=== PATIENT | female | born 1995 | race Caucasian/White ===

== ENCOUNTER 2017-06-18 17:42 | Emergency (ER) | payer OTHER ==
[2017-06-18] MEDS ORDERED: KETOROLAC TROMETHAMINE 60 MG/2 ML VIAL IM ONE (18:59)
--- NOTE | 2017-06-18 19:00 | PDOC ---
Rapid Medical Evaluation Time Seen by Provider: 06/18/17 18:55 Medical Evaluation: 06/18/17 18:55 The patient presents with a chief complaint of: L sided headache since this morning. Took Motrin at 12:00. Feels a little dizzy. Has history of headaches/ migraines. I have performed a brief in-person evaluation of this patient; Pertinent physical exam findings: Neuro intact I have ordered the following: Toradol The patient will proceed to the ED for further evaluation.
[2017-06-18 19:13] VITALS: BMI 21.9
--- NOTE | 2017-06-18 20:38 | PDOC ---
History of Present Illness - General Chief Complaint: Headache Stated Complaint: HEADACHE Time Seen by Provider: 06/18/17 18:55 History Source: Patient Exam Limitations: No Limitations - History of Present Illness Initial Comments: CHIEF COMPLAINT: 21 y/o afebrile female with PMH migraines c/o left sided headache today. HISTORY OF PRESENT ILLNESS: The patient states her headache feels similar to migraines she's had in the past but she hasn't had one in a long time. She states she is sensitive to light as well. She denies f/c, n/v/d, CP, SOB, abd pain, changes to vision/hearing. Vital signs on arrival are within normal limits. REVIEW OF SYSTEMS: GENERAL/CONSTITUTIONAL: No fever/chills. No weakness. No weight change. HEAD, EYES, EARS, NOSE AND THROAT: +photophobia. No ear pain or discharge. No sore throat. CARDIOVASCULAR: No chest pain or shortness of breath. RESPIRATORY: No cough, wheezing, or hemoptysis. GASTROINTESTINAL: No abd pain, nausea, vomiting, diarrhea. GENITOURINARY: No dysuria, frequency, or change in urination. MUSCULOSKELETAL: No joint or muscle swelling or pain. No neck or back pain. SKIN: No rash or easy bruising. NEUROLOGIC: +headache. No vertigo, loss of consciousness, or loss of sensation. PHYSICAL EXAM: GENERAL: The patient is awake, alert, and fully oriented, in no acute distress. SHe is well appearing and ambulatory, but holding her hand over her head. HEAD: Normal with no signs of trauma. No hematomas. No TTP. ENT: Pupils equal, round and reactive to light, extraocular movements intact, sclera anicteric, conjunctiva clear. Photophobia. No pain with EOMs. LUNGS: Clear to auscultation bilaterally. Normal excursion. No respiratory distress or use of accessory muscles. CV: RRR, S1/S2, no MRG. Cap refill < 2 sec. ABDOMEN: Soft, non-distended, non-tender even to deep palpation, no hepatomegaly or splenomegaly, no masses. EXTREMITIES: Normal range of motion, no edema. NEUROLOGICAL: Normal speech, normal gait. CN II-XII grossly intact. SKIN: Warm, dry, normal turgor, no rashes or lesions noted. Past History - Past Medical History Allergies/Adverse Reactions: Allergies Allergy/AdvReac Type Severity Reaction Status Date / Time No Known Allergies Allergy Verified 06/18/17 18:56 Home Medications: Ambulatory Orders NK [No Known Home Medication] 06/18/17 CVA: No COPD: No DVT: No Other medical history: MIGRANES - Immunization History Immunization Up to Date: Yes - Suicide/Smoking/Psychosocial Hx Smoking History: Never smoked Information on smoking cessation initiated: No Hx Alcohol Use: No Drug/Substance Use Hx: No Substance Use Type: None *Physical Exam - Vital Signs Last Vital Signs Temp Pulse Resp BP Pulse Ox 98.1 F 91 H 17 124/51 99 06/18/17 18:56 06/18/17 18:56 06/18/17 18:56 06/18/17 18:56 06/18/17 18:56 ED Treatment Course - LABORATORY CBC & Chemistry Diagram: 06/18/17 22:00 06/18/17 22:00 Medical Decision Making - Medical Decision Making A/P: 21 y/o female with what sounds like migraine headache. Plan is as follows : 1. hcg Patient states she cannot give urine. Gave PO fluids 1 hour later still no urine. Will do serum , labs, IV fluids and IV reglan. Will transfer to main ER. EVANGELINA Uriostegui and charge nurse Dontrell away. The patient verbalizes understanding of all instructions, has no further questions and is awaiting discharge. *DC/Admit/Observation/Transfer Diagnosis at time of Disposition: Migraine Qualifiers: Migraine type: unspecified Status migrainosus presence: without status migrainosus Intractability: not intractable Qualified Code(s): G43.909 - Migraine, unspecified, not intractable, without status migrainosus - Referrals - Patient Instructions Printed Discharge Instructions: DI for Migraine - Post Discharge Activity
[2017-06-18] MEDS ORDERED: SODIUM CHLORIDE 1,000 ML IV STA (21:54)
[2017-06-18] MEDS ORDERED: METOCLOPRAMIDE HCL INJECTION 10 MG/2 ML VIAL IVPUSH ONE (22:08)
--- NOTE | 2017-06-18 22:28 | PDOC ---
*Physical Exam - Vital Signs Last Vital Signs Temp Pulse Resp BP Pulse Ox 98.1 F 91 H 17 124/51 99 06/18/17 18:56 06/18/17 18:56 06/18/17 18:56 06/18/17 18:56 06/18/17 18:56 - Physical Exam General Appearance: Yes: Appropriately Dressed, Other ED Treatment Course - LABORATORY CBC & Chemistry Diagram: 06/18/17 22:00 06/18/17 22:00 Medical Decision Making - Medical Decision Making 06/19/17 01:21 IVF completed. patient now feels better. will d/c home. dizziness and numbness improved, 06/19/17 01:36 *DC/Admit/Observation/Transfer Diagnosis at time of Disposition: Migraine Qualifiers: Migraine type: unspecified Status migrainosus presence: without status migrainosus Intractability: not intractable Qualified Code(s): G43.909 - Migraine, unspecified, not intractable, without status migrainosus - Discharge Dispostion Disposition: HOME - Prescriptions Prescriptions: Acetaminophen/Caffeine/Butalb [Fioricet -] 1 tab PO Q6H PRN #10 tablet MDD 4 PRN Reason: Headache - Referrals Referrals: Rome Cotto DO [Staff Physician] - - Patient Instructions Printed Discharge Instructions: DI for Migraine Additional Instructions: drink plenty of fluids take fiorecet every 6 hours as needed for headache. follow up with your doctor. return to the ED if symptoms worsen. - Post Discharge Activity Forms/Work/School Notes: Back to School
[2017-06-18 22:33] LABS: BASO % 0.5 % (0-2.0); EOS % 1.7 % (0-4.5); HEMATOCRIT 38.6 % (32.4-45.2); LYMPH % 36.5 % (8-40); MCH 29.4 pg (25.7-33.7); MCHC 33.6 g/dl (32.0-36.0); MEAN CELL VOLUME 87.3 fl (80-96); MONO % 7.8 % (3.8-10.2); NEUT % 53.5 % (42.8-82.8); PLATELET COUNT 177 K/MM3 (134-434); RBC 4.42 M/mm3 (3.60-5.2); RDW 12.8 % (11.6-15.6)
[2017-06-18 23:05] LABS: ALBUMIN 4.1 g/dl (3.4-5.0); ALK PHOS 72 U/L (45-117); ANION GAP 7 (8-16); BILIRUBIN,TOTAL 0.9 mg/dL (0.2-1.0); BLOOD UREA NITROGEN 11 mg/dL (7-18); CHLORIDE 104 mmol/L (98-107); CO2 28 mmol/L (21-32); CREATININE 0.6 mg/dL (0.55-1.02); GLUCOSE,RANDOM 84 mg/dL (74-106); POTASSIUM 4.4 mmol/L (3.5-5.1); SGOT/AST 11 U/L (15-37); SGPT/ALT 18 U/L (12-78); SODIUM 139 mmol/L (136-145)
[2017-06-18] MEDS ORDERED: KETOROLAC TROMETHAMINE 30 MG/1 ML VIAL IVPUSH ONE (23:13)
[2017-06-19] MEDS ORDERED: METOCLOPRAMIDE HCL INJECTION 10 MG/2 ML VIAL ONE (00:38)
[2017-06-19] MEDS ORDERED: KETOROLAC TROMETHAMINE 30 MG/1 ML VIAL ONE (00:39)
[2017-06-19] MEDS ORDERED: SODIUM CHLORIDE 1,000 ML IV STA (00:41)
[2017-06-19] MEDS ORDERED: SODIUM CHLORIDE 0.9% 1000 ML INFUS.BAG IV ONE (00:43)
[2017-06-19 02:48] VITALS: BP 124/52; PULSE 89; TEMP 98
== END 2017-06-19 02:55 | disposition home or self-care (01) ==
LOC: JER 17:42 → JERFT 17:42 → JER 06-19 02:55
PROC: 3E0337Z Introduction of Electrolytic and Water Balance Substance into Peripheral Vein, Percutaneous Approach (ICD-10-PCS; principal; 2017-06-18)
PROC: 3E0333Z Introduction of Anti-inflammatory into Peripheral Vein, Percutaneous Approach (ICD-10-PCS; 2017-06-18)
PROC: 3E033GC Introduction of Other Therapeutic Substance into Peripheral Vein, Percutaneous Approach (ICD-10-PCS; 2017-06-18)
DX: G43.909 Migraine, unspecified, not intractable, without status migrainosus (principal)
CPT/HCPCS: 36415; 80053; 84703; 85025; 99281-25

== ENCOUNTER 2018-07-01 21:56 | Emergency (ER) | payer OTHER ==
[2018-07-01 22:34] VITALS: BP 126/88; PULSE 80; TEMP 98.7; BMI 22.6
[2018-07-02] MEDS ORDERED: ACETAMINOPHEN 325 MG TABLET (FP) PO ONE (00:07)
[2018-07-02] MEDS ORDERED: SODIUM CHLORIDE 1,000 ML IV STA (00:07)
[2018-07-02] MEDS ORDERED: METOCLOPRAMIDE HCL INJECTION 10 MG/2 ML VIAL IVPB ONE (00:07)
[2018-07-02] MEDS ORDERED: METOCLOPRAMIDE HCL INJECTION 10 MG/2 ML VIAL ONE (00:44)
[2018-07-02] MEDS ORDERED: ACETAMINOPHEN 325 MG TABLET (FP) ONE (00:44)
--- NOTE | 2018-07-02 01:38 | PDOC ---
History of Present Illness - General Chief Complaint: Migraine Headache Stated Complaint: HEADACE VOMITING Time Seen by Provider: 07/01/18 23:04 History Source: Patient Exam Limitations: No Limitations Past History - Past Medical History Allergies/Adverse Reactions: Allergies Allergy/AdvReac Type Severity Reaction Status Date / Time No Known Allergies Allergy Verified 06/18/17 18:56 Home Medications: Ambulatory Orders Acetaminophen/Caffeine/Butalb [Fioricet -] 1 tab PO Q6H PRN #10 tablet MDD 4 CVA: No COPD: No DVT: No - Immunization History Immunization Up to Date: Yes - Suicide/Smoking/Psychosocial Hx Smoking History: Never smoked Hx Alcohol Use: No Drug/Substance Use Hx: No Substance Use Type: None *Physical Exam - Vital Signs Last Vital Signs Temp Pulse Resp BP Pulse Ox 98.7 F 80 20 126/88 96 07/01/18 22:28 07/01/18 22:28 07/01/18 22:28 07/01/18 22:28 07/01/18 22:28 - Physical Exam General Appearance: No: Apparent Distress HEENT: positive: ADAM Respiratory/Chest: positive: Lungs Clear, Normal Breath Sounds. negative: Respiratory Distress Cardiovascular: positive: Regular Rhythm, Regular Rate, S1, S2. 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 intact, Fully Oriented, Alert, Normal Mood/ Affect, Normal Response, Motor Strength 5/5 Moderate Sedation - Procedure Monitoring Vital Signs: Procedure Monitoring Vital Signs Temperature 98.7 F 07/01/18 22:28 Pulse Rate 80 07/01/18 22:28 Respiratory Rate 20 07/01/18 22:28 Blood Pressure 126/88 07/01/18 22:28 O2 Sat by Pulse Oximetry (%) 96 07/01/18 22:28 ED Treatment Course - Medications Given in the ED: ED Medications Discontinued Medications Generic Name Dose Route Start Last Admin Trade Name Freq PRN Reason Stop Dose Admin Acetaminophen 975 mg 07/02/18 00:07 07/02/18 00:49 Tylenol - PO 07/02/18 00:08 975 mg ONCE ONE Administration Sodium Chloride 1,000 mls @ 1,000 mls/hr 07/02/18 00:07 07/02/18 00:49 Normal Saline - IV 07/02/18 01:06 1,000 mls/hr ASDIR STA Administration Metoclopramide HCl 10 mg 07/02/18 00:07 07/02/18 00:49 Reglan Injection - IVPB 07/02/18 00:08 10 mg ONCE ONE Administration Medical Decision Making - Medical Decision Making 22 y/o F with hx of migraines presents with PABLO from this morning that feels like her typical migraine. Usually, she takes Tylenol or Motrin for her HAs. Took Tylenol in AM and Motrin around 7 PM but not noting any improvement. PABLO worse with light and noise. Also had 2 episodes of NBNB emesis. Mentions she has follow-up for her headaches and had CT scan of head done last month which was normal. Denies numbness/tingling/weakness of extremities, visual/gait changes. Migraine PABLO - given Tylenol, IVF, Reglan and on reassessment, feeling better stable for dc 07/02/18 01:53 *DC/Admit/Observation/Transfer Diagnosis at time of Disposition: Migraine Qualifiers: Migraine type: unspecified Status migrainosus presence: without status migrainosus Intractability: not intractable Qualified Code(s): G43.909 - Migraine, unspecified, not intractable, without status migrainosus - Discharge Dispostion Disposition: HOME Condition at time of disposition: Improved Decision to Admit order: No - Referrals - Patient Instructions Printed Discharge Instructions: DI for Migraine - Post Discharge Activity
== END 2018-07-02 02:01 | disposition home or self-care (01) ==
LOC: JER 21:56
PROC: 3E033GC Introduction of Other Therapeutic Substance into Peripheral Vein, Percutaneous Approach (ICD-10-PCS; principal; 2018-07-01)
DX: G43.909 Migraine, unspecified, not intractable, without status migrainosus (principal)
CPT/HCPCS: 99281-25; J7030